=== PATIENT | male | born 1995 | race African-American/Black ===

== ENCOUNTER 2018-06-23 00:15 | Emergency (ER) | payer SELFPAY ==
[~2018-06-23] VITALS: Ht 175.3 cm; Wt 87.6 kg
[2018-06-23 00:20] VITALS: BP 120/63; PULSE 102; RESP 20; Ht 175.3 cm; Wt 87.6 kg
[2018-06-24] MEDS ORDERED: ALBU18HF INHALATION (03:22)
[2018-06-24] MEDS ORDERED: BENZ-6 PO (03:22)
== END 2018-06-23 02:46 | disposition left against medical advice (07) ==
LOC: FTE 00:15
DX: Z53.21 Procedure and treatment not carried out due to patient leaving prior to being seen by health care provider (principal)

== ENCOUNTER 2018-06-24 02:10 | Emergency (ER) | payer OTHER ==
[~2018-06-24] VITALS: Ht 175.3 cm; Wt 79.5 kg
[2018-06-24 02:16] VITALS: BP 118/76; PULSE 91; RESP 19; Ht 175.3 cm; Wt 79.5 kg
[2018-06-24] MEDS ORDERED: BENZ-6 PO (03:22)
[2018-06-24] MEDS ORDERED: ALBU18HF INHALATION (03:22)
--- NOTE | 2018-06-24 03:29 | ERD ---
ER Documentation Chief Complaint Chief Complaint bib self, cc: cough x 2 days, no fever, HPI 22-year-old male patient with no significant past medical history presents to the ED complaining of sore throat, cough that started 2 days ago. Patient reports that he has not tried taking medications. Denies any recent traveling. Denies any sick contacts. Denies any wheezing, shortness of breath, nausea, vomiting, diarrhea, neck stiffness. Denies any suicidal or homicidal ideations. ROS All systems reviewed and are negative except as per history of present illness. Medications Home Meds Active Scripts Albuterol Sulfate* (Ventolin HFA*) 18 Gm Hfa.aer.ad, 2 PUFF INHALATION Q4H, #1 INHALER Prov:TORRI FREEMAN PA-C 06/24/18 Benzonatate* (Tessalon Perle*) 100 Mg Capsule, 100 MG PO Q8H PRN for COUGH, #20 CAP Prov:TORRI FREEMAN PA-C 06/24/18 Allergies Allergies: Coded Allergies: No Known Drug Allergies (Verified Allergy, Unknown, 06/23/18) PMhx/Soc Medical and Surgical Hx: pt denies Medical Hx, pt denies Surgical Hx Hx Alcohol Use: No Hx Substance Use: No Hx Tobacco Use: No Smoking Status: Never smoker FmHx Family History: No diabetes, No coronary disease Physical Exam Vitals Vital Signs Date Temp Pulse Resp B/P (MAP) Pulse Ox O2 O2 Flow FiO2 Time Delivery Rate 06/24/18 98.3 91 19 118/76 100 02:16 (90) Physical Exam Const: Qti-ekd-urotwczxe, well-nourished. In no acute distress. Head: Atraumatic, normocephalic Eyes: Normal Conjunctiva without injection. No purulent discharge. PERRL. EOMI ENT: Normal external ear. Ear canal without erythema. Tympanic membrane pearly santoyo without effusion or bulging. Nasal canal clear with normal turbinates. Moist oropharynx without tonsillar exudates. Non-erythematous pharynx. Uvula midline. No drooling. No trismus. Neck: Full range of motion. No meningismus. No cervical lymphadenopathy. Resp: Clear to auscultation bilaterally. No wheezing, rhonchi, rales, or crackles. No accessory muscle use. No retractions. Cardio: Regular rate and rhythm. No murmurs, rubs or gallops. Abd: Soft, non tender, non distended. Normal bowel sounds. No palpable masses. No rebound tenderness. No guarding. Skin: No petechiae or rashes Back: No midline tenderness. No CVA tenderness. Ext: No cyanosis, or edema. Neur: Awake and alert. Psych: Normal Mood and Affect Procedures/MDM 2-year-old male patient with no significant past medical history presents to ED complaining of a productive cough started 2 days ago. Patient is afebrile and nontoxic-appearing. This patient presents to the ED with symptoms consistent with a viral acute upper respiratory infection. Patient's physical exam include lungs which were clear to auscultation and a normal pulse oximetry. There is a low suspicion for pneumonia, pneumothorax, mononucleosis, pulmonary embolism, epiglottitis, otitis media, otitis externa, viral/strep pharyngitis, sinusitis, myocarditis, pericarditis, endocarditis, peritonsillar abscess, mastoiditis, retropharyngeal abscess, meningitis, sepsis, acute abdomen or other emergent conditions. Fluids, rest, and symptomatic treatment are recommended for the management of patient's symptoms. Diagnosis: Cough Discharge medications: Tesmpon Malka Romero Follow up with primary care physician in 1-2 days. Instructed patient to return to the ED sooner for any worsening symptoms. Patient's questions were answered. Patient is hemodynamically stable. Patient understood and agreed with discharge plan. Patient discharged stable. Disclaimer: Inadvertent spelling and grammatical errors are likely due to EHR/dictation software use and do not reflect on the overall quality of patient care. Also, please note that the electronic time recorded on this note does not necessarily reflect the actual time of the patient encounter. Departure Diagnosis: Primary Impression: Cough Condition: Stable Patient Instructions: Uri, Viral, No Abx (Adult) Referrals: COMMUNITY CLINICS YOU HAVE RECEIVED A MEDICAL SCREENING EXAM AND THE RESULTS INDICATE THAT YOU DO NOT HAVE A CONDITION THAT REQUIRES URGENT TREATMENT IN THE EMERGENCY DEPARTMENT. FURTHER EVALUATION AND TREATMENT OF YOUR CONDITION CAN WAIT UNTIL YOU ARE SEEN IN YOUR DOCTORS OFFICE WITHIN THE NEXT 1-2 DAYS. IT IS YOUR RESPONSIBILITY TO MAKE AN APPOINTMENT FOR FOLOW-UP CARE. IF YOU HAVE A PRIMARY DOCTOR --you should call your primary doctor and schedule an appointment IF YOU DO NOT HAVE A PRIMARY DOCTOR YOU CAN CALL OUR PHYSICIAN REFERRAL HOTLINE AT IF YOU CAN NOT AFFORD TO SEE A PHYSICIAN YOU CAN CHOSE FROM THE FOLLOWING [facility] [address] [facility] [address] [facility] [address] [facility] [address] [facility] [address] [facility] [facility] [address] [facility]. [facility] YOU HAVE RECEIVED A MEDICAL SCREENING EXAM AND THE RESULTS INDICATE THAT YOU DO NOT HAVE A CONDITION THAT REQUIRES URGENT TREATMENT IN THE EMERGENCY DEPARTMENT. FURTHER EVALUATION AND TREATMENT OF YOUR CONDITION CAN WAIT UNTIL YOU ARE SEEN IN YOUR DOCTORS OFFICE WITHIN THE NEXT 1-2 DAYS. IT IS YOUR RESPONSIBILITY TO MAKE AN APPOINTMENT FOR FOLOW-UP CARE. IF YOU HAVE A PRIMARY DOCTOR --you should call your primary doctor and schedule and appointment IF YOU DO NOT HAVE A PRIMARY DOCTOR YOU CAN CALL OUR PHYSICIAN REFERRAL HOTLINE AT . IF YOU CAN NOT AFFORD TO SEE A PHYSICIAN YOU CAN CHOSE FROM THE FOLLOWING [facility]: [facility] [address] [place] [address] [facility] [address] [place] [address] [facility] [address] [place] [address] [facility] Additional Instructions: Call your primary care doctor TOMORROW for an appointment during the next 2-3 days.See the doctor sooner or return here if your condition worsens before your appointment time. TORRI FREEMAN PA-C Jun 24, 2018 03:29
== END 2018-06-24 03:30 | disposition home or self-care (01) ==
LOC: FTE 02:10
DX: R05 Cough (principal)
CPT/HCPCS: 99283

== ENCOUNTER 2018-06-24 05:53 | Emergency (ER) | payer OTHER ==
[~2018-06-24] VITALS: Wt 88.7 kg
[~2018-06-24 05:53] MED LIST: ALBU18HF INHALATION; BENZ-6 PO
--- NOTE | 2018-06-24 08:02 | ERD ---
ER Documentation Chief Complaint Chief Complaint bib self, cc: recent discharge for cough st, complaining now of hemoptysis HPI 22-year-old healthy male presents for blood streaked sputum times 1 day. Recently seen here for a cough and given Tessalon Perles. He denies fever, endorses body aches. He has a history of present illness the use, he states he has not used in the last 3 days. He denies any chest pain or shortness of breath, no abdominal pain. ROS All systems reviewed and are negative except as per history of present illness. Medications Home Meds Active Scripts Albuterol Sulfate* (Ventolin HFA*) 18 Gm Hfa.aer.ad, 2 PUFF INHALATION Q4H, #1 INHALER Prov:TORRI FREEMAN PA-C 06/24/18 Benzonatate* (Tessalon Perle*) 100 Mg Capsule, 100 MG PO Q8H PRN for COUGH, #20 CAP Prov:TORRI FREEMAN PA-C 06/24/18 Allergies Allergies: Coded Allergies: No Known Drug Allergies (Verified Allergy, Unknown, 06/23/18) PMhx/Soc History of Surgery: No Anesthesia Reaction: No Hx Neurological Disorder: No Hx Respiratory Disorders: No Hx Cardiac Disorders: No Hx Psychiatric Problems: No Hx Miscellaneous Medical Probl: No Hx Alcohol Use: Yes (drinks 4/week) Hx Substance Use: No Hx Tobacco Use: No Smoking Status: Never smoker Physical Exam Vitals Vital Signs Date Temp Pulse Resp B/P (MAP) Pulse Ox O2 O2 Flow FiO2 Time Delivery Rate 06/24/18 98.1 84 18 111/66 97 Room Air 08:24 (81) 06/24/18 98.3 95 19 128/79 100 05:55 (95) Physical Exam Const: No acute distress Head: Atraumatic Eyes: Normal Conjunctiva ENT: Normal External Ears, Nose and Mouth. Neck: Full range of motion. No meningismus. Resp: Clear to auscultation bilaterally Cardio: Regular rate and rhythm, no murmurs Abd: Soft, non tender, non distended. Normal bowel sounds Skin: No petechiae or rashes Back: No midline or flank tenderness Ext: No cyanosis, or edema Neur: Awake and alert Psych: Normal Mood and Affect Result Diagram: 06/24/18 0702 06/24/18 0702 Results 24 hrs Laboratory Tests Test 06/24/18 07:02 White Blood Count 9.1 10^3/ul Red Blood Count 4.51 10^6/ul Hemoglobin 13.2 g/dl Hematocrit 41.1 % Mean Corpuscular Volume 91.1 fl Mean Corpuscular Hemoglobin 29.3 pg Mean Corpuscular Hemoglobin Concent 32.1 g/dl Red Cell Distribution Width 11.9 % Platelet Count 277 10^3/UL Mean Platelet Volume 9.7 fl Immature Granulocytes % 0.200 % Neutrophils % 66.3 % Lymphocytes % 20.1 % Monocytes % 11.5 % Eosinophils % 1.3 % Basophils % 0.6 % Nucleated Red Blood Cells % 0.0 /100WBC Immature Granulocytes # 0.020 10^3/ul Neutrophils # 6.0 10^3/ul Lymphocytes # 1.8 10^3/ul Monocytes # 1.0 10^3/ul Eosinophils # 0.1 10^3/ul Basophils # 0.1 10^3/ul Nucleated Red Blood Cells # 0.0 10^3/ul Sodium Level 144 mmol/L Potassium Level 4.2 mmol/L Chloride Level 107 mmol/L Carbon Dioxide Level 28 mmol/L Anion Gap 9 Blood Urea Nitrogen 14 mg/dl Creatinine 0.80 mg/dl Est Glomerular Filtrat Rate mL/min > 60 mL/min Glucose Level 119 mg/dl Calcium Level 9.0 mg/dl Procedures/MDM 22-year-old male presents for evaluation of hemoptysis. Patient does not appear to be in any Tory distress, does not have any evidence of hemoptysis, his chest x-ray was negative and his labs are overall unremarkable. At this point I do not suspect an emergent cause for his hemoptysis, could be possible bronchitis, at this point patient is stable for discharge home, strict return precautions given. At discharge she was in no acute distress. Departure Diagnosis: Primary Impression: Hemoptysis Condition: Stable Patient Instructions: Hemoptysis Additional Instructions: Call your primary care doctor TOMORROW for an appointment during the next 2-3 days.See the doctor sooner or return here if your condition worsens before your appointment time. CLARK VOGEL MD Jun 24, 2018 08:02
[2018-06-24 08:24] VITALS: BP 111/66; PULSE 84; RESP 18
== END 2018-06-24 08:39 | disposition home or self-care (01) ==
LOC: E/R 05:53
DX: R04.2 Hemoptysis (principal)
CPT/HCPCS: 71045; 80048; 85025; Z7502

== ENCOUNTER 2018-09-01 16:50 | Emergency (ER) | payer OTHER ==
[~2018-09-01] VITALS: Wt 89.4 kg
[2018-09-01] MEDS ORDERED: KETOROLAC 30 MG INJ IM STA (18:50)
[2018-09-01] MEDS ORDERED: IBUP-1542 PO (19:21)
--- NOTE | 2018-09-01 19:26 | ERD ---
ER Documentation Chief Complaint Chief Complaint BACK PAIN, ONSET TODAY, NO INJURY HPI Patient is a 22 male with no past medical history presents the ER for concerns of back pain which started prior to arrival. Patient states the pain started approximately 3-4 hours ago. Patient states that he was at the bus [place] stretching with his arms above his head while leaning against a glass when he developed pain. Patient states that when he twists he feels the pain. Patient denies any falls or trauma. Patient denies any saddle anesthesia, urine incontinence or stool incontinence. Patient denies any radiation of the pain. Patient denies any chest pain, shortness of breath, abdominal pain, nausea, vomiting, LOC. Patient denies any unilateral weakness, slurred speech or difficulty ambulating. Patient denies any dysuria, frequency, urgency or hematuria. ROS All systems reviewed and are negative except as per history of present illness. Medications Home Meds Active Scripts Ibuprofen* (Motrin*) 600 Mg Tab, 600 MG PO Q6, #30 TAB Prov:AVEL REID PA-C 09/01/18 Albuterol Sulfate* (Ventolin HFA*) 18 Gm Hfa.aer.ad, 2 PUFF INHALATION Q4H, #1 INHALER Prov:TORRI FREEMAN PA-C 06/24/18 Benzonatate* (Tessalon Perle*) 100 Mg Capsule, 100 MG PO Q8H PRN for COUGH, #20 CAP Prov:TORRI FREEMAN PA-C 06/24/18 Allergies Allergies: Coded Allergies: No Known Drug Allergies (Verified Allergy, Unknown, 06/23/18) PMhx/Soc History of Surgery: Yes (Josh in R leg) Anesthesia Reaction: No Hx Neurological Disorder: No Hx Respiratory Disorders: No Hx Cardiac Disorders: No Hx Psychiatric Problems: No Hx Miscellaneous Medical Probl: No Hx Alcohol Use: Yes (drinks 4/week) Hx Substance Use: No Hx Tobacco Use: Yes Smoking Status: Current some day smoker FmHx Family History: No diabetes Physical Exam Vitals Vital Signs Date Temp Pulse Resp B/P (MAP) Pulse Ox O2 O2 Flow FiO2 Time Delivery Rate 09/01/18 98.8 88 17 142/69 98 16:58 (93) Physical Exam GENERAL: Well-developed, well-nourished male. Appears in no acute distress. HEAD: Normocephalic, atraumatic. EYES: Pupils are equally reactive bilaterally. EOMs grossly intact. No conju nctival erythema. ENT: Moist mucous membranes. No uvula deviation. No kissing tonsils. NECK: Supple. No meningismus. Normal range of motion of the neck. LUNG: Clear to auscultation bilaterally. No rhonchi, wheezing, rales or coarse breath sounds. HEART: Regular rate and rhythm. No murmurs, rubs or gallops. Equal pulses in bilateral upper extremities. BACK: No midline tenderness. Tender to palpation of bilateral thoracic paraspinal muscles. Pain is reproducible. EXTREMITIES: Equal pulses bilaterally. No peripheral clubbing, cyanosis or edema. No unilateral leg swelling. NEUROLOGIC: Alert and oriented. Moving all four extremities without any difficulty. Normal speech. Steady gait. SKIN: Normal color. Warm and dry. No rashes or lesions. Results 24 hrs Current Medications Medications Dose Sig/Sabino Start Time Status Last (Trade) Ordered Route PRN Stop Time Admin Dose Reason Admin Ketorolac 30 mg ONCE STAT 09/01/18 DC 09/01/18 Tromethamine IM 18:50 18:58 (Toradol) 09/01/18 18:51 Procedures/MDM MEDICAL DECISION MAKING: This is a 22-year-old male who presents to the ER for concerns of back pain after stretching earlier today. Patient states his pain was worse with movemen t. Patient was given Toradol here in the ER and patient reported improvement in pain prior to discharge.. Vital signs were reviewed. Patient was afebrile. Patient denied any saddle anesthesia, urinary incontinence, bowel incontinence, night pain or recent trauma. At this time, patient presentation is most consistent with musculoskeletal pain. Low suspicion for cauda equine syndrome, spinal fractures, epidural abscess, spinal metastases, osteomyelitis, aortic dissection, pyelonephritis or nephrolithiasis. Patient was nontoxic, non- opening prior to discharge. PRESCRIPTIONS: Ibuprofen DISCHARGE: At this time, patient is stable for discharge and outpatient management. RICE therapy and ROM exercises were advised to avoid stiffness. I have instructed the patient to follow-up with his/her primary care physician in 1-2 days. I have discussed with the patient the possibility of needing to see an repair specialist for further workup and imaging if the pain persists. I have instructed the patient to promptly return to the ER for any new or worsening symptoms including increased pain, swelling, warmth, urinary incontinence, stool incontinence, weakness or numbness. The patient and/or family expressed understanding of and agreement with this plan. All questions were answered. Home care instructions were provided. Disclaimer: Inadvertent spelling and grammatical errors are likely due to EHR/dictation software use and do not reflect on the overall quality of patient care. Also, please note that the electronic time recorded on this note does not necessarily reflect the actual time of the patient encounter. Departure Diagnosis: Primary Impression: Back pain Back pain location: back pain in unspecified location Chronicity: acute Back pain laterality: unspecified Qualified Codes: M54.9 - Dorsalgia, unspecified Condition: Fair Patient Instructions: Back Pain (Acute Or Chronic) Referrals: [facility] YOU HAVE RECEIVED A MEDICAL SCREENING EXAM AND THE RESULTS INDICATE THAT YOU DO NOT HAVE A CONDITION THAT REQUIRES URGENT TREATMENT IN THE EMERGENCY DEPARTMENT. FURTHER EVALUATION AND TREATMENT OF YOUR CONDITION CAN WAIT UNTIL YOU ARE SEEN IN YOUR DOCTORS OFFICE WITHIN THE NEXT 1-2 DAYS. IT IS YOUR RESPONSIBILITY TO MAKE AN APPOINTMENT FOR FOLOW-UP CARE. IF YOU HAVE A PRIMARY DOCTOR --you should call your primary doctor and schedule an appointment IF YOU DO NOT HAVE A PRIMARY DOCTOR YOU CAN CALL OUR PHYSICIAN REFERRAL HOTLINE AT IF YOU CAN NOT AFFORD TO SEE A PHYSICIAN YOU CAN CHOSE FROM THE FOLLOWING [facility] [address] [facility]. [facility] [address] [facility]. [facility] [address] [facility]. [facility] [address] [facility] [facility] [address] [facility]. [facility]. [address] [facility]. [facility] YOU HAVE RECEIVED A MEDICAL SCREENING EXAM AND THE RESULTS INDICATE THAT YOU DO NOT HAVE A CONDITION THAT REQUIRES URGENT TREATMENT IN THE EMERGENCY DEPARTMENT. FURTHER EVALUATION AND TREATMENT OF YOUR CONDITION CAN WAIT UNTIL YOU ARE SEEN IN YOUR DOCTORS OFFICE WITHIN THE NEXT 1-2 DAYS. IT IS YOUR RESPONSIBILITY TO MAKE AN APPOINTMENT FOR FOLOW-UP CARE. IF YOU HAVE A PRIMARY DOCTOR --you should call your primary doctor and schedule and appointment IF YOU DO NOT HAVE A PRIMARY DOCTOR YOU CAN CALL OUR PHYSICIAN REFERRAL HOTLINE AT . IF YOU CAN NOT AFFORD TO SEE A PHYSICIAN YOU CAN CHOSE FROM THE FOLLOWING [facility] INSTITUTIONS: [facility] [address] [place] [address] [facility] [address] [place] [address] [facility] [address] [place] [address] Additional Instructions: Call your primary care doctor TOMORROW for an appointment during the next 1-2 days.See the doctor sooner or return here if your condition worsens before your appointment time. AVEL REID PA-C Sep 01, 2018 19:26
[2018-09-01 19:31] VITALS: BP 130/72; PULSE 82; RESP 15
== END 2018-09-01 19:31 | disposition home or self-care (01) ==
LOC: FTE 16:50
DX: M54.9 Dorsalgia, unspecified (principal)
CPT/HCPCS: 96372; J1885; Z7502